=== PATIENT | female | born 1990 | race Caucasian/White ===

== ENCOUNTER 2018-09-06 22:16 | Emergency (ER) | payer OTHER, MEDICAID ==
[~2018-09-06] VITALS: Ht 144.8 cm; Wt 40.0 kg
[2018-09-06] MEDS ORDERED: DEPO-PROVER150 MG/ML IM (22:51)
[2018-09-07 00:30] VITALS: BP 118/80
[2018-09-07] MEDS ORDERED: MOTRIN400 MG PO (00:42)
== END 2018-09-07 00:45 | disposition home or self-care (01) | DRG 605 ==
LOC: ED 22:16
DX: S00.93XA Contusion of unspecified part of head, initial encounter (principal); V89.2XXA Person injured in unspecified motor-vehicle accident, traffic, initial encounter